=== PATIENT | female | born 1995 ===

== ENCOUNTER 2017-04-30 13:45 | Inpatient (IN) | payer OTHER ==
[~2017-04-30] VITALS: Ht 154.9 cm; Wt 73.0 kg
[2017-05-05] MEDS ORDERED: IRON325 MG PO (07:47)
[2017-05-05] MEDS ORDERED: FOLIC ACID1 MG PO (07:47)
== END 2017-05-07 11:23 | disposition home or self-care (01) | DRG 767 ==
LOC: LDR 05-05 06:11 → O/R 05-05 06:11 → OB/GYN 05-05 17:57 → LDR 05-17 13:45
PROVIDERS: Obstetrics & Gynecology
PROC: 4A1HXCZ Monitoring of Products of Conception, Cardiac Rate, External Approach (ICD-10-PCS; 2017-05-05)
PROC: 4A033R1 Measurement of Arterial Saturation, Peripheral, Percutaneous Approach (ICD-10-PCS; 2017-05-05)
PROC: 10E0XZZ Delivery of Products of Conception, External Approach (ICD-10-PCS; principal; 2017-05-05 16:00)
PROC: 0UT70ZZ Resection of Bilateral Fallopian Tubes, Open Approach (ICD-10-PCS; 2017-05-06)
DX: O80 Encounter for full-term uncomplicated delivery (principal); Z3A.38 38 weeks gestation of pregnancy; Z37.0 Single live birth; Z30.2 Encounter for sterilization; Z64.1 Problems related to multiparity